=== PATIENT | female | born 1950 | race Caucasian/White ===

== ENCOUNTER 2022-03-17 05:19 | Day surgery (SDC) | payer MEDICARE ==
[2022-03-14 12:03] LABS: COVID AG,FIA SOURCE NASOPHARYNGEAL
[2022-03-14 12:05] LABS: BASOPHILS % (AUTO) 0.6 % (0.0-2.0); EOSINOPHILS % (AUTO) 1.4 % (1.0-6.0); HEMATOCRIT 37.5 % (36-46); HEMOGLOBIN 12.5 g/dL (12.0-16.0); LYMPHOCYTES # (AUTO) 1.9 K/uL (1.0-4.8); LYMPHOCYTES % (AUTO) 23.4 % (22.0-44.0); MEAN CORPUSCULAR HGB CONC 33.3 G/dL (31.0-37.0); MEAN CORPUSCULAR VOLUME 93 fL (80-100); MONOCYTES # (AUTO) 0.8 K/uL (0.1-1.0); MONOCYTES % (AUTO) 9.7 % (2.0-9.0); NEUTROPHILS # (AUTO) 5.2 K/uL (1.8-7.7); NEUTROPHILS % (AUTO) 64.9 % (40.0-70.0); PLATELET COUNT (AUTO) 224 K/uL (150-450); RED BLOOD CELL COUNT(AUTO) 4.02 MIL/uL (4.00-5.20); RED CELL DISTRIBUTION WIDTH 12.8 % (11.5-14.5)
[2022-03-14 12:13] LABS: CREATININE 1.07 mg/dL (0.60-1.30); POTASSIUM 4.3 mmol/L (3.5-5.1)
[2022-03-14 12:19] LABS: ALBUMIN 3.4 g/dL (3.4-5.0); BILIRUBIN,TOTAL 0.4 mg/dL (0.1-1.0); TOTAL PROTEIN, SERUM 7.2 g/dL (6.4-8.2)
[2022-03-14 12:21] LABS: PROTHROMBIN TIME 10.9 SEC (9.4-11.6)
[~2022-03-17] VITALS: Ht 170.2 cm; Wt 81.8 kg
[~2022-03-17 05:19] MED LIST: ASPI81TA39 PO; ATOR40TA28 PO; BENZ-70 PO; BUPR-74 PO; CLOP75TA60 PO; FLUT16H NASAL; METO25 PO; SERT-162 PO
[2022-03-17] MEDS ORDERED: SODIUM CHLORIDE 0.9% 1,000 ML IV ONE (05:30)
[2022-03-17] MEDS ORDERED: SODIUM CHLORIDE 0.9% 1,000 ML ONE (05:45)
[2022-03-17] MEDS ORDERED: SODIUM BICARBONATE 50 MEQ/50 ML VIAL ONE (07:35)
[2022-03-17] MEDS ORDERED: IOHEXOL 300 MG/ML 50 ML VIAL ONE (07:35)
[2022-03-17] MEDS ORDERED: IOHEXOL 300 MG/ML 150 ML VIAL ONE (07:35)
[2022-03-17] MEDS ORDERED: LIDOCAINE/PF 1% 30 ML VIAL ONE (07:35)
[2022-03-17] MEDS ORDERED: IOHEXOL 300 MG/ML 100 ML VIAL ONE (07:35)
[2022-03-17] MEDS ORDERED: HEPARIN SODIUM 1000 UNITS/NS 1,000 ML ONE (07:36)
[2022-03-17] MEDS ORDERED: VERAPAMIL HCL 2.5 MG/ML 2 ML VIAL ONE (07:38)
[2022-03-17] MEDS ORDERED: NITROGLYCERIN 50 MG/D5% WATER 250 ML ONE (07:38)
[2022-03-17 08:18] VITALS: BP 151/85
[2022-03-17] MEDS ORDERED: 0.9% SODIUM CHLORIDE 10 ML SYRINGE IVP ONE (08:25)
[2022-03-17] MEDS ORDERED: FentaNYL CITRATE PF 100 MCG/2 ML VIAL ONE (08:27)
[2022-03-17] MEDS ORDERED: MIDAZOLAM HCL 2 MG/2 ML VIAL ONE ×2 (08:28→08:48)
[2022-03-17] MEDS ORDERED: HEPARIN SODIUM 1000 UNITS/NS 1,000 ML IARTER ONE (09:00)
[2022-03-17] MEDS ORDERED: NITROGLYCERIN/D5W 50 MG/250 ML IV BOTTLE IARTER ONE (09:00)
[2022-03-17] MEDS ORDERED: MIDAZOLAM HCL 2 MG/2 ML VIAL IVP ONE (09:00)
[2022-03-17] MEDS ORDERED: IOHEXOL 300 MG/ML 150 ML VIAL IARTER ONE (09:00)
[2022-03-17] MEDS ORDERED: VERAPAMIL HCL 2.5 MG/ML 2 ML VIAL IARTER ONE (09:00)
[2022-03-17] MEDS ORDERED: LIDOCAINE 1% 30 ML/SOD BICARB 8.4% 4 ML SQ ONE (09:00)
[2022-03-17] MEDS ORDERED: IOHEXOL 300 MG/ML 50 ML VIAL IARTER ONE (09:00)
[2022-03-17] MEDS ORDERED: FentaNYL CITRATE PF 100 MCG/2 ML VIAL IVP ONE (09:00)
[2022-03-17 09:28] VITALS: BP 179/82
[2022-03-17] MEDS ORDERED: ACETAMINOPHEN 325 MG TABLET PO PRN (09:30)
[2022-03-17] MEDS ORDERED: SODIUM CHLORIDE 0.9% 500 ML IV ONE (09:30)
== END 2022-03-17 12:45 | disposition home or self-care (01) ==
LOC: CATHLAB 05:19
PROVIDERS: ATTEND Internal Medicine Cardiovascular Disease
DX: R94.39 Abnormal result of other cardiovascular function study (principal); R07.9 Chest pain, unspecified; I25.10 Atherosclerotic heart disease of native coronary artery without angina pectoris; Z95.5 Presence of coronary angioplasty implant and graft; F41.9 Anxiety disorder, unspecified; Z79.01 Long term (current) use of anticoagulants; Z98.890 Other specified postprocedural states
CPT/HCPCS: 36415; 80053; 85025; 85610; 85730; 87426; 93458; 99152; C9803; J1644; J2250; J3010; J3490 ×4; J7030; Q9967 ×2